=== PATIENT | female | born 1990 | race Caucasian/White ===

== ENCOUNTER 2022-07-15 10:18 | Emergency (ER) | payer OTHER, SELFPAY ==
[2022-07-15 10:21] VITALS: BP 127/84; PULSE 88; RESP 16; TEMP 36.9; O2SAT 100; BMI 25.0
--- NOTE | 2022-07-15 10:38 | ED.ABDPAIN ---
HPI - Abdominal Pain General Time Seen by Provider: 10:38 Date Seen: 07/15/22 Chief Complaint: Abdominal Pain Stated Complaint: Abdominal pain, urinary symptoms Time Seen by Provider: 07/15/22 10:34 Source: patient, RN notes reviewed and old records reviewed Mode of arrival: ambulatory Limitations: no limitations History of Present Illness HPI narrative: Melony is a very pleasant 31-year-old female who is really quite healthy who comes to the emergency room with complaints of vaginal discharge and abdominal pain. Patient states that 4 days ago she began to notice a malodorous thick yellow almost greenish discharge that reminded her of bacterial vaginosis which she has had in the past. She notes that the odor has resolved but she still has some discharge. Is not concerned about any ST eyes and is at a healthy marriage. She denies a past history of chlamydia or gonorrhea. She notes that 2 days ago she began experiencing left-sided abdominal pain. This is now radiating to her left flank and even up her back toward her shoulder. She tried to get into the [facility] but she would they were unable to schedule her until next week. Patient has noted that she feels bloated and crampy and when she urinates she does not feel like she urinates as much as she should. She has not had a fever but does state she has felt hot. 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 She just had on inspection. She has not had ulcers in the past and is on Protonix. She denies alcohol use in fact she has been sober for many years. She had her son in February of this year. Shoulder dystocia complication but no other issues. She is not currently on control and had a normal period 2 weeks ago. She states she has only had 3. Since the of her son. Denies nausea or vomiting. No change in her stools. No blood in stool. Feels very fatigued. Has not taken anything for discomfort. MD elicited complaint: abdominal pain and flank pain Pertinent past history: none Pain Consistency: constant Location: epigastric and LUQ Severity: moderate Quality: cramping, fullness and sharp Radiation: L flank Migration to: other (Left upper back) Exacerbating factors: rest Relieving factors: bowel movement (Slight improvement) Related Data Previous Rx's Medication Instructions Recorded metronidazole 0.75 % (37.5 mg/5 5 g vaginal DAILY 5 days #25 grams 07/15/22 gram) vaginal gel Allergies Allergy/AdvReac Type Severity Reaction Status Date / Time buspirone Allergy Mild Verified 07/15/22 12:22 Review of Systems Status of ROS Reports: 10 or more systems reviewed and unremarkable except as noted in History and below Const Reports: fatigue; Denies: fever or chills Eyes Denies: change in vision ENMT Denies: throat pain, throat swelling or difficulty swallowing Cardio Denies: chest pain, palpitations, edema or shortness of breath with exertion Resp Denies: shortness of breath or cough GI Reports: abdominal pain; Denies: nausea, vomiting, diarrhea or difficulty swallowing Reports: urinary frequency and decreased urine ouput; Denies: painful urination Musculo Reports: back pain Integ/Breast Denies: rash Neuro Denies: headache, numbness in extremities or weakness in extremities Psych Reports: anxiety and other (Significant workplace stressors) Endo Reports: fatigue; Denies: excessive urination or excessive thirst Allergy/Immuno Denies: throat swelling PFSH PFSH Social History Smoking Status: Never smoker Do you use any of these nicotine containing products: None Second hand tobacco smoke exposure: No How often do you have a drink containing alcohol: never How often do you have six or more drinks on one occasion: Never AUDIT-C Alcohol total score: 0 Non-prescribed substance use: denies use service: No Exam Narrative: Exam Narrative: Past medical history: Anxiety depression Alcohol abuse sober for many years Family history: Mother with pancreatic cancer status post [facility] Father with alcohol addiction Two brothers are healthy 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 tobacco use No alcohol use Const: Vital Signs, click to edit/add: Vital Signs - 24 hr 07/15/22 10:21 07/15/22 13:06 07/15/22 14:32 Temperature 98.5 F Pulse Rate [Right Pulse Oximeter] 88 68 83 Respiratory Rate 16 16 16 Blood Pressure [Ri ght Upper Arm] 127/84 124/75 116/72 Pulse Oximetry 100 99 100 Oxygen Delivery Me thod Room Air Room Air Room Air Documenting provider has reviewed patient's vital signs: yes Common normals: no apparent distress, average body habitus, oriented x3, no limitations, healthy appearing, alert and well nourished General appearance: cooperative, comfortable and well kempt HENMT: Common normals: normocephalic Head and scalp: normocephalic Eye: Common normals: PERRL General eye: normal appearance of both eyes Pupil: PERRL Neck & C-Spine: Common normals: full ROM Chest: Common normals: inspection of chest normal Resp: Common normals: normal respiratory effort and clear to auscultation bilaterally Effort & inspection: able to speak in complete sentences and symmetric chest movement Auscultation: clear to auscultation bilaterally Cardio: Common normals: regular rate and regular rhythm Rate: regular rate Rhythm: regular rhythm GI: Common normals: soft to palpation and no masses Auscultation: normoactive bowel sounds Palpation: soft and tender Details: epigastric and LUQ : Common normals: no CVA tenderness Bladder/kidney exam: no CVA tenderness External Female Exam: normal appearance of the urethra Speculum exam - cervix: cervical os closed and other (White vaginal discharge.); no cervical bleeding and no cervical tenderness Bimanual exam- vagina & uterus: normal vaginal palpation; no cervical motion tenderness and no cervical tenderness Bimanual exam- adnexa, other: other (Left adnexal tenderness.) Back & Pelvis: Common normals: no CVA tenderness and thoracic and lumbar spine normal to inspection Extremity: Common normals: normal to inspection and full ROM Other: Full flexion of the knee. No obvious effusion. Not warm to the touch. No obvious effusion. Neuro: Common normals: oriented x3 Sensorium/orientation: alert Psych: Common normals: mental status grossly normal and thought process normal Appearance: well kempt Thought process: normal thought process Skin: Common normals: no rashes or lesions noted General skin exam: no rashes or lesions noted Course Course Hospital Course: At this time patient has vaginal discharge but abdominal pain is actually more left upper quadrant and epigastric area. We will place IV and patient will be given Toradol and fluids. Plan on abdominal CT once we have a negative test. Also will check CBC, comprehensive panel, CRP, wet prep, GC chlamydia, urinalysis and HCG. Reevaluation(s) Reevaluation #1: Vaginal exam accomplished. Patient noted to have persistent pain after Toradol. I did offer morphine and Zofran but patient would like to hold off for now. Currently awaiting results of abdominal CT. If normal would recommend vaginal ultrasound. Reevaluation #2: Patient informed that CT of the abdomen was read within normal limits. At this time have ordered ultrasound of the pelvis. Vital Signs Vital signs: Initial Vital Signs Temperature 98.5 F 07/15/22 10:21 Temperature Source Temporal Artery Scan 07/15/22 10:21 Pulse Rate 88 07/15/22 10:21 Pulse Rhythm 07/15/22 10:21 Respiratory Rate 16 07/15/22 10:21 Blood Pressure 127/84 07/15/22 10:21 Blood Pressure Mean 98 07/15/22 10:21 Blood Pressure Position Sitting 07/15/22 10:21 Pulse Oximetry 100 07/15/22 10:21 Oxygen Delivery Method 07/15/22 10:21 Vital Signs Temperature 98.5 F 07/15/22 10:21 Pulse Rate 88 07/15/22 10:21 Respiratory Rate 16 07/15/22 10:21 Blood Pressure 127/84 07/15/22 10:21 Pulse Oximetry 100 07/15/22 10:21 Oxygen Delivery Method 07/15/22 10:21 Temperature 98.5 F 07/15/22 10:21 Pulse Rate 83 07/15/22 14:32 Respiratory Rate 16 07/15/22 14:32 Blood Pressure 116/72 07/15/22 14:32 Pulse Oximetry 100 07/15/22 14:32 Oxygen Delivery Method 07/15/22 14:32 MDM - Abdominal Pain MDM Narrative Medical decision making narrative: 1. Vaginal discharge -patient notes the vaginal discharge is unusual for her. She thinks this feels like bacterial vaginosis. Wet prep was negative at this time. As a trial will use Flagyl inserts 1 insert x5 nights. Follow-up with OBGYN next TuesdayJuly 23 at 1100 hours. GC/chlamydia tests are pending at this time. Very low suspicion of them being positive. White count and LFTs as well as urine all within normal limits. 2. Abdominal pain -abdominal CT reassuring without any evidence of significant pathology. At this time recommend ibuprofen or Tylenol for discomfort as well as trial of MiraLax 1/2 cap b.i.d. until stools are soft. Return to the emergency room for worsening or the onset of new symptoms. 3. Knee pain-patient is noted to have normal appearance of knee without effusion or erythema it is not warm to the touch. Recommend knee sleeve with support for the patella. I wonder if this is patellofemoral syndrome. Will need to see PT if pain does not improve. No evidence of something like Yeni syndrome with joint not red or swollen. 3. Disposition-patient is discharged at this time. Return as needed. Medical Records Attestation: I reviewed the patient's medical records. Lab Data Attestation: I reviewed the patient's lab results. Labs: Lab Results 07/15/22 07/15/22 07/15/22 Range/Units 10:52 11:00 11:10 WBC 4.57 (4.50-11.00) K/uL RBC 4.31 (4.00-5.20) m/uL Hgb 12.3 (12.0-16.0) gm/dL Hct 38.2 (33.0-51.0) % MCV 89 (80-100) fL MCH 29 (26-34) pg MCHC 32 (32-36) gm/dL RDW Coeff of Angela 13.1 (11.5-15.5) % Plt Count 224 (140-440) K/uL Neut % (Auto) 43.1 (42.0-72.0) % Lymph % (Auto) 47.9 H (20-44) % [place] % (Auto) 6.6 (0.0-11.0) % Eos % (Auto) 1.5 (0.0-7.0) % Baso % (Auto) 0.9 (0.0-3.0) % Neut # (Auto) 1.97 (1.7-7.0) K/uL Lymph # (Auto) 2.20 (0.90-2.90) K/uL [place] # (Auto) 0.30 (0.00-0.90) K/UL Eos # (Auto) 0.07 (0.00-0.50) K/uL Baso # (Auto) 0.04 (0.00-0.30) K/uL Abs Immat Gran (auto) 0.00 (0.00-0.30) K/uL Sodium (135-149) mmol/L Potassium (3.6-5.1) mmol/L Chloride (96-114) mmol/L Carbon Dioxide (20-32) mmol/L BUN (5-24) mg/dL Creatinine (0.5-1.5) mg/dL Estimated Creat Clear Estimated GFR ml/min Glucose (60-115) mg/dL Calcium (8.4-10.6) mg/dL Total Bilirubin (0.1-1.5) mg/dL AST (12-35) U/L ALT (4-35) U/L Alkaline Phosphatase (40-150) U/L C-Reactive Protein (0.5-1.0) mg/dL Total Protein (6.0-8.3) g/dL Albumin (3.3-5.0) g/dL Urine Color Yellow (Yellow) Urine Appearance Clear (Clear) Urine pH 7.0 (5.0-8.5) Ur Specific [place] 1.010 (1.000-1.030) Urine Protein Negative (Negative) Urine Glucose (UA) Negative (Negative) Urine Ketones Negative (Negative) Urine Blood Negative (Negative) Urine Nitrite Negative (Negative) Urine Bilirubin Negative (Negative) Urine Urobilinogen 0.2 (0.2-1.0) Ur Leukocyte Esterase Negative (Negative) Urine RBC 0-2 (0-2) Urine WBC 0-2 (0-5) Ur Squamous Epith Cells Few (None-Few) Urine Bacteria None (None) Urine HCG, Qual Negative (Negative) Vaginal Trichomonas (None Seen) Vaginal Yeast (None Seen) Vaginal Clue Cells (None Seen) C.trachomatis Ampl DNA NOT DETECTED (No Detected) N.gonorrhoeae Ampl DNA NOT DETECTED (No Detected) 07/15/22 07/15/22 Range/Units 11:10 12:49 WBC (4.50-11.00) K/uL RBC (4.00-5.20) m/uL Hgb (12.0-16.0) gm/dL Hct (33.0-51.0) % MCV (80-100) fL MCH (26-34) pg MCHC (32-36) gm/dL RDW Coeff of Angela (11.5-15.5) % Plt Count (140-440) K/uL Neut % (Auto) (42.0-72.0) % Lymph % (Auto) (20-44) % [place] % (Auto) (0.0-11.0) % Eos % (Auto) (0.0-7.0) % Baso % (Auto) (0.0-3.0) % Neut # (Auto) (1.7-7.0) K/uL Lymph # (Auto) (0.90-2.90) K/uL [place] # (Auto) (0.00-0.90) K/UL Eos # (Auto) (0.00-0.50) K/uL Baso # (Auto) (0.00-0.30) K/uL Abs Immat Gran (auto) (0.00-0.30) K/uL Sodium 138 (135-149) mmol/L Potassium 4.2 (3.6-5.1) mmol/L Chloride 103 (96-114) mmol/L Carbon Dioxide 27 (20-32) mmol/L BUN 13 (5-24) mg/dL Creatinine 0.8 (0.5-1.5) mg/dL Estimated Creat Clear 93.37 Estimated GFR 102 ml/min Glucose 88 (60-115) mg/dL Calcium 9.3 (8.4-10.6) mg/dL Total Bilirubin 0.2 (0.1-1.5) mg/dL AST 24 (12-35) U/L ALT 15 (4-35) U/L Alkaline Phosphatase 53 (40-150) U/L C-Reactive Protein < 0.5 L (0.5-1.0) mg/dL Total Protein 7.8 (6.0-8.3) g/dL Albumin 4.6 (3.3-5.0) g/dL Urine Color (Yellow) Urine Appearance (Clear) Urine pH (5.0-8.5) Ur Specific [place] (1.000-1.030) Urine Protein (Negative) Urine Glucose (UA) (Negative) Urine Ketones (Negative) Urine Blood (Negative) Urine Nitrite (Negative) Urine Bilirubin (Negative) Urine Urobilinogen (0.2-1.0) Ur Leukocyte Esterase (Negative) Urine RBC (0-2) Urine WBC (0-5) Ur Squamous Epith Cells (None-Few) Urine Bacteria (None) Urine HCG, Qual (Negative) Vaginal Trichomonas No Trichomonas Seen (None Seen) Vaginal Yeast No Yeast Seen (None Seen) Vaginal Clue Cells No Clue Cells Seen (None Seen) C.trachomatis Ampl DNA (No Detected) N.gonorrhoeae Ampl DNA (No Detected) Imaging Data CT scan - abdomen: Attestation: I have reviewed the pertinent imaging results. Radiologist's impression: No obvious cause of discomfort. No acute findings Pelvis ultrasound: Attestation: I have reviewed the pertinent imaging results. Radiologist's impression: Unremarkable and no acute findings Discharge Plan Discharge Clinical Impression: Vaginal discharge, Abdominal pain Patient Disposition: Home, Self-Care Condition: Unchanged Additional Instructions: Recommend starting Flagyl vaginal inserts for symptoms related to bacterial vaginosis in her even though you tested negative today. Ibuprofen or Tylenol as needed for pain. Recommend using MiraLax 1/2 does call in the morning and 1/2 dose at night. With follow-up with OBGYN on: TuesdayJuly 23 at 1100 hours at the [facility] with Susan Kellogg nurse practitioner. Seek medical attention for worsening symptoms. Prescriptions: New metronidazole 0.75 % (37.5mg/5 gram) gel 5 g vaginal DAILY 5 Days Qty: 25 0RF Follow Up/Referrals: Provider,Not a Local [Primary Care Provider] - Stand Alone Forms: [facility] Info Instructions
[2022-07-15 11:20] LABS: Basophils Absolute Auto 0.04 K/uL (0.00-0.30); Basophils Percent Auto 0.9 % (0.0-3.0); Eosinophils Absolute Auto 0.07 K/uL (0.00-0.50); Eosinophils Percent Auto 1.5 % (0.0-7.0); Hematocrit 38.2 % (33.0-51.0); Hemoglobin* 12.3 gm/dL (12.0-16.0); Lymphocytes Percent Auto 47.9 % (20-44); Mean Corpuscular HGB Conc 32 gm/dL (32-36); Mean Corpuscular Hemoglobin 29 pg (26-34); Mean Corpuscular Volume 89 fL (80-100); Monocytes Percent Auto 6.6 % (0.0-11.0); Neutrophils Absolute Auto 1.97 K/uL (1.7-7.0); Neutrophils Percent Auto 43.1 % (42.0-72.0); Platelet Count* 224 K/uL (140-440); RDW Coefficient of Variation % 13.1 % (11.5-15.5); Red Blood Count 4.31 m/uL (4.00-5.20); White Blood Count* 4.57 K/uL (4.50-11.00)
[2022-07-15 11:24] LABS: Slide Review Reflex No
[2022-07-15 11:27] LABS: Ur HCG Qualitative* Negative (Negative)
[2022-07-15 11:29] LABS: Appearance Urine Clear (Clear); Bilirubin Urine Negative (Negative); Blood Urine Negative (Negative); Color Urine Yellow (Yellow); Glucose Urine Negative (Negative); Ketones Urine Negative (Negative); Leukocyte Esterase Urine Negative (Negative); Nitrite Urine Negative (Negative); Protein Urine Negative (Negative); Urobilinogen Urine 0.2 (0.2-1.0)
[2022-07-15 11:36] LABS: Albumin* 4.6 g/dL (3.3-5.0); Chloride* 103 mmol/L (96-114); Sodium* 138 mmol/L (135-149)
[2022-07-15 11:37] LABS: Potassium* 4.2 mmol/L (3.6-5.1)
[2022-07-15 11:39] LABS: Bilirubin Total* 0.2 mg/dL (0.1-1.5); Carbon Dioxide* 27 mmol/L (20-32); Creatinine* 0.8 mg/dL (0.5-1.5); Est. Creatinine Clearance* 93.37; Estimated Glomerular Filt Rate 102 ml/min
[2022-07-15 11:40] LABS: Alanine Aminotransferase* 15 U/L (4-35); Alkaline Phosphatase* 53 U/L (40-150); Aspartate Amino Transferase* 24 U/L (12-35); Blood Urea Nitrogen* 13 mg/dL (5-24); Glucose* 88 mg/dL (60-115); Total Protein* 7.8 g/dL (6.0-8.3)
[2022-07-15 11:41] LABS: Calcium* 9.3 mg/dL (8.4-10.6)
--- NOTE | 2022-07-15 11:50 | CRLHL7_ITS ---
For Patients: As a result of the Century Cures Act, medical imaging exams and procedure reports are released immediately into your electronic medical record. You may view this report before your referring provider. If you have questions, please contact your health care provider. INDICATION: Left upper quadrant abdominal pain COMPARISON: None TECHNIQUE: CT examination of the abdomen and pelvis was performed following the uneventful intravenous administration of 74 cc of Isovue 370. Thin section axial images were obtained from the lung bases through the pubic symphysis. Oral contrast was not administered. TECHNICAL NOTE: Moderate limitations due to motion artifact especially in the upper half of the abdomen. Please note that all CT scans at this facility use dose modulation, iterative reconstruction, and/or weight-based dosing when appropriate to reduce radiation dose to as low as reasonably achievable. FINDINGS: LUNG BASES: The lung bases as visualized appear normal.The heart size is normal at the lung bases. LIVER/BILIARY SYSTEM:The liver is normal in size and configuration. There is no focal mass and there is no intra- or extra hepatic biliary ductal dilatation.Hepatic steatosis. The gallbladder appears normal ADRENALS: Normal KIDNEYS, URETERS and BLADDER:The kidneys appear normal. No visible mass, calculus or hydronephrosis. The ureters and bladder as visualized appear normal. SPLEEN:Normal appearance. PANCREAS: Appears normal. RETROPERITONEUM and MESENTERY: There is no mass, adenopathy or aortic aneurysm. GASTROINTESTINAL SYSTEM: There is no evidence of diverticulitis, colitis, mechanical obstruction, or appendicitis. The small bowel as visualized appears normal. PELVIS: No mass, adenopathy or free fluid. OSSEOUS STRUCTURES and ABDOMINAL WALL: There is an age-appropriate appearance of the osseous structures.No significant abdominal wall defect. OTHER: No free fluid or free air. IMPRESSION: Somewhat limited by motion. However, there is no visible cause for upper abdominal pain. Hepatic steatosis. Please note that all CT scans at this facility use dose modulation, iterative reconstruction, and/or weight-based dosing when appropriate to reduce radiation dose to as low as reasonably achievable. Dictated by Chapincito De MD @ 07/15/2022 12:49:15 PM (Electronically Signed)
[2022-07-15 11:55] LABS: C Reactive Protein* < 0.5 mg/dL (0.5-1.0)
[2022-07-15 11:55] LABS: RBC Urine 0-2 (0-2); WBC Urine 0-2 (0-5)
[2022-07-15 11:56] LABS: Squamous Epithelial Cell Urine Few (None-Few)
[2022-07-15] MEDS: KETOROLAC 15 MG/ML inj IVP (12:34)
[2022-07-15] MEDS: 0.9 % SODIUM CHLORIDE 1000 ml 1,000 ML IV (12:34)
[2022-07-15 13:06] VITALS: BP 124/75; PULSE 68; RESP 16; O2SAT 99
--- NOTE | 2022-07-15 13:20 | CRLHL7_ITS ---
For Patients: As a result of the Century Cures Act, medical imaging exams and procedure reports are released immediately into your electronic medical record. You may view this report before your referring provider. If you have questions, please contact your health care provider. Indication: Left-sided pain Technique: Sonography of the pelvis was performed transabdominally and transvaginally Comparison: There are no prior ultrasounds available for comparison. Findings: The uterus measures 8.8 x 4.5 x 5.4 centimeters which is normal. Myometrial echotexture is unremarkable. The endometrium measures 5 millimeters which is normal. The right ovary measures 3.5 x 2.2 x 2.6 centimeters. Doppler flow was identified and appears normal. The left ovary measures 3.2 x 2.0 x 2.5 centimeters. Doppler flow was identified in appear normal. There is no free fluid in the cul-de-sac. Impression: Unremarkable examination Dictated by Chapincito De MD @ 07/15/2022 2:29:14 PM (Electronically Signed)
[2022-07-15 13:31] LABS: Yeast No Yeast Seen (None Seen)
[2022-07-15 13:32] LABS: Clue Cells No Clue Cells Seen (None Seen); Trichomonas No Trichomonas Seen (None Seen)
[2022-07-15] MEDS: ONDANSETRON 2 MG/ML inj 4 MG IVP (14:18)
[2022-07-15] MEDS: MORPHINE 4 MG/ML INJ IVP (14:18)
[2022-07-15 14:32] VITALS: BP 116/72; PULSE 83; RESP 16; O2SAT 100
[2022-07-15 14:51] LABS: Chlamydia DNA Amplified* NOT DETECTED (No Detected); GC DNA Amplified* NOT DETECTED (No Detected)
== END 2022-07-15 15:01 | disposition home or self-care (01) ==
PROVIDERS: Emergency Provider Family Medicine
DX: N89.8 Other specified noninflammatory disorders of vagina (principal); R10.9 Unspecified abdominal pain
CPT/HCPCS: 36415; 74177; 76830; 80053; 81001; 81025; 85025; 86140; 87210; 87491; 87591; 93976; 96374; 96375; 99284; 99285; J1885; J2270; J2405; J7030; Q9967

== ENCOUNTER 2024-06-17 17:02 | Emergency (ER) | payer OTHER, SELFPAY ==
[2024-06-17 17:14] VITALS: BP 120/72; PULSE 69; RESP 18; TEMP 36.7; O2SAT 99; BMI 28.3
[2024-06-17 18:08] LABS: Appearance Urine Clear (Clear); Bilirubin Urine Negative (Negative); Blood Urine Negative (Negative); Color Urine Yellow (Yellow); Glucose Urine Negative (Negative); Ketones Urine Negative (Negative); Leukocyte Esterase Urine Negative (Negative); Nitrite Urine Negative (Negative); Protein Urine Negative (Negative); Specific Gravity Urine 1.015 (1.000-1.030); Urobilinogen Urine 0.2 (0.2-1.0); pH Urine 6.5 (5.0-8.5)
--- NOTE | 2024-06-17 18:36 | ED_ITS ---
HPI - General Date Seen: 06/17/24 Chief complaint: OB/Uterine Contractions Stated complaint: cramping, 18 wks Time Seen by Provider: 06/17/24 17:46 Source: patient Mode of arrival: ambulatory Limitations: no limitations History of Present Illness HPI Narrative: Patient is a 33-year-old female who presents here at 18 weeks gestation, with a Trejo , early ultrasound for dating. She had left lower quadrant discomfort about an hour ago, that lasted for probably about 30 minutes on a cramp situation she did not think it was contractions, was left lower quadrant cramping. Did not go anywhere else to her back. She has not noted any bleeding or discharge, the has been uneventful so far she has had a little problem with frequency of urination but states in her other she had the similar issue. No history of UTIs. She is a with 2 spontaneous vaginal deliveries, she is followed by [facility] in [place]. She describes the pain really is gone away at this point. She was out the sun all day. And playing in the pool at home with her other children. She had normal bowel movements today. Complaint: abdominal pain Onset (ago): hour(s) Pain Consistency: constant Location: abdomen Severity: moderate Quality: Cramping Relieving factors: none Exacerbating factors: none Associated symptoms: denies other symptoms Vaginal discharge: none Vaginal bleeding: none Patient : Yes Number of Weeks : 18 OB History - Current : no complications OB History - Previous Pregnancies: no complications care: good care Related Data : 3 Para: 2 Home Medications ?Medication ?Instructions ?Recorded ?Confirmed ferrous gluconate 324 mg (38 mg 324 mg PO Q1D 06/17/24 06/17/24 iron) tablet sertraline 100 mg tablet 200 mg PO DAILY 06/17/24 06/17/24 Previous Rx's ?Medication ?Instructions ?Recorded metronidazole 0.75 % (37.5 mg/5 5 g vaginal DAILY 5 days #25 grams 07/15/22 gram) vaginal gel Allergies Allergy/AdvReac Type Severity Reaction Status Date / Time buspirone Allergy Mild Verified 07/15/22 12:22 Review of Systems Status of ROS: Reports: 10 or more systems reviewed and unremarkable except as noted in History and below PFSH PFSH Social History Smoking Status: Never smoker Do you use any of these nicotine containing products: None Second hand tobacco smoke exposure: No How often do you have a drink containing alcohol: never How often do you have six or more drinks on one occasion: Never AUDIT-C Alcohol total score: 0 Non-prescribed substance use: denies use service: No Exam Narrative: Exam Narrative: She is seen in room 7 she appears to be in no apparent distress, speaking to me normally pupils equal round reactive to light there is no scleral icterus redness TMs are normal oropharynx normal abdomen is soft there is no guarding at all no organomegaly bowel sounds are normal the uterus is at her umbilicus. With no tenderness. Back shows no tenderness no, no CVA tenderness, no rashes Ultrasound is use, this shows a Trejo with baby move around with a normal heart seen on the ultrasound at 150 beats per minute. Uterus appears anterior and low lying. Const: Vital Signs, click to edit/add: Vital Signs - 24 hr 06/17/24 17:14 Temperature 98.1 F Pulse Rate [Left P ulse Oximeter] 69 Respiratory Rate 18 Blood Pressure [Ri ght Upper Arm] 120/72 Pulse Oximetry 99 Oxygen Delivery Me thod Room Air Documenting provider has reviewed patient's vital signs: yes Course Reevaluation(s) Time of Reevaluation #1: 19:12 Reevaluation #1: Patient continues to be pain-free, she has received her fluids. She is almost done, heart is auscultated by the nurses at 147. at this point we can discharge her home I went over with he ther signs and symptom of worsening, when to re present. She was comfortable with this., Vital Signs Vital signs: Initial Vital Signs Temperature 98.1 F 06/17/24 17:14 Temperature Source Oral 06/17/24 17:14 Pulse Rate 69 06/17/24 17:14 Pulse Rhythm Regular 06/17/24 17:14 Pulse Strength 3+ Normal 06/17/24 17:14 Respiratory Rate 18 06/17/24 17:14 Blood Pressure 120/72 06/17/24 17:14 Blood Pressure Mean 88 06/17/24 17:14 Blood Pressure Position Sitting 06/17/24 17:14 Pulse Oximetry 99 06/17/24 17:14 Oxygen Delivery Method Room Air 06/17/24 17:14 Vital Signs Temperature 98.1 F 06/17/24 17:14 Pulse Rate 69 06/17/24 17:14 Respiratory Rate 18 06/17/24 17:14 Blood Pressure 120/72 06/17/24 17:14 Pulse Oximetry 99 06/17/24 17:14 Oxygen Delivery Method Room Air 06/17/24 17:14 Temperature 98.1 F 06/17/24 17:14 Pulse Rate 69 06/17/24 17:14 Respiratory Rate 18 06/17/24 17:14 Blood Pressure 120/72 06/17/24 17:14 Pulse Oximetry 99 06/17/24 17:14 Oxygen Delivery Method Room Air 06/17/24 17:14 Medications Administered Medications: Discontinued Medications Generic Name Dose Route Start Last Admin Trade Name Freq PRN Reason Stop Dose Admin Sodium Chloride 1,000 mls @ 1,000 mls/hr 06/17/24 18:00 06/17/24 18:43 0.9 % Sodium Chloride 1000 Ml IV 06/17/24 18:59 1,000 mls/hr .Q1H TIMOTEO Administration MDM - OB/Uterine Contractions MDM Narrative Medical decision making narrative: I discussed with her options here. Including for the diagnosis including irritability, of the uterus threatened , UTI, as pyelonephritis, diverticulitis, abruptio, dehydration, constipation, Lab Data Labs: Lab Results 06/17/24 Range/Units 18:00 Urine Color Yellow (Yellow) Urine Appearance Clear (Clear) Urine pH 6.5 (5.0-8.5) Ur Specific Pear[place]om 1.015 (1.000-1.030) Urine Protein Negative (Negative) Urine Glucose (UA) Negative (Negative) Urine Ketones Negative (Negative) Urine Blood Negative (Negative) Urine Nitrite Negative (Negative) Urine Bilirubin Negative (Negative) Urine Urobilinogen 0.2 (0.2-1.0) Ur Leukocyte Esterase Negative (Negative) Discharge Plan Discharge Clinical Impression: Left sided abdominal pain of unknown cause, Patient Disposition: Home, Self-Care Condition: Improved Instructions: (ED), Abdominal Pain (ED), at 19 to 22 Weeks (ED) Additional Instructions: I am happy that the pain went away I suspect this was either gas or maybe a little bit of dehydration, no evidence of UTI on examination and her baby looks happy on the ultrasound that we did. The pain recurs, you a vaginal bleeding or other issues then I would ask you to follow-up with here OB or back here in the emergency room. No strenuous activity for the next 24-48 hours and I would avoid intercourse also during this time. Activity Level: Light activity Prescriptions: No Action metronidazole 0.75 % (37.5mg/5 gram) gel 5 g vaginal DAILY 5 Days Qty: 25 0RF sertraline 100 mg tablet 200 mg PO DAILY ferrous gluconate 324 mg (38 mg iron) tablet 324 mg PO Q1D Follow Up/Referrals: Provider,Not a Local [Primary Care Provider] - Stand Alone Forms: MyHealth Info Instructions Procedures Perimortem Number of Weeks : 18
[2024-06-17] MEDS: 0.9 % SODIUM CHLORIDE 1000 ml 1,000 ML IV (18:43)
== END 2024-06-17 19:38 | disposition home or self-care (01) ==
PROVIDERS: Emergency Provider Family Medicine
DX: R10.32 Left lower quadrant pain (principal); Z33.1 Pregnant state, incidental
CPT/HCPCS: 81003; 99282; 99283; 99284; J7030

== ENCOUNTER 2025-11-18 11:03 | Emergency (ER) | payer OTHER, SELFPAY ==
[2025-11-18 11:06] VITALS: BP 126/77; PULSE 92; RESP 16; TEMP 36.9; O2SAT 99; BMI 27.2
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
--- OUTSIDE RECORDS SUMMARY | 2025-11-18 11:06 | XMS_ITS | Clinical Summary ---
Author Organization [facility] Address [address] [place] [address]. 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 Draw one red top and two purple top tubes for all Type&Screen/RBC product orders. HbcybyrpmPofwzyxqkmfnVyu24/04/2017 Medications MedicationSigDispense QuantityRefillsLast FilledStart DateEnd DateStatus busPIRone (BUSPAR) 10 MG tablet Take 1 tablet (10 mg) by mouth 3 times daily 90 tablet 09/08/2016Active ISOtretinoin (ACCUTANE) 10 MG capsule Take 30 mg by mouth12/30/2016Active cyclobenzaprine (FLEXERIL) 10 MG tablet Take 5-10 mg by mouth Reported on Active venlafaxine (EFFEXOR) 75 MG tablet Take 75 mg by mouth08/24/2017Active fluticasone (FLONASE) 50 MCG/ACT nasal spray [place] 1 spray into both nostrils daily 11.1 mL 2Active Active Problems No known active problems Family History RelationStatusCommentsFatherAliveMotherAlive Social History Tobacco UseTypesPacks/DayYears UsedDateSmoking Tobacco: FormerSmokeless Tobacco: Never Tobacco Cessation:Ready to Q uit: No; Counseling Given: No Alcohol UseStandard Drinks/WeekCommentsNo0 (1 standard drink = 0.6 oz pure alcohol)PHQ-2AnswerDate RecordedPHQ-2 Ekoki548Adolescent EducationAnswer Date RecordedGetting School Help NeededNot on file3CommentsNo Sex and Gender InformationValueDate RecordedSex Assigned at BirthNot on file Legal InsJcbvrm16/21/2014 3:27 PM CDTGender IdentityNot on fileSexual OrientationNot on file Last Filed Vital Signs Vital SignReadingTime TakenCommentsBlood Camtzddf855/8605/30/2022 11:03 PM CDT Bsdhd656605/30/2022 11:00 PM GTHHzcnxvmilix32.2 ??C (97.2 ??F)05/30/2022 11:00 PM CDTRespiratory Mazx136605/30/2022 11:00 PM CDTOxygen Tuqepqpmxy802%05/30/2022 11:00 PM CDTInhaled Oxygen Concentration--Hxrdcs36 kg (150 lb)05/30/2022 11:00 PM KOUVpznwy795.1 cm (5' 5)05/30/2022 11:00 PM CDTBody Mass Index24.96 05/30/2022 11:00 PM CDT Plan of Treatment Not on file Insurance * Guarantor: Melony Ernst TypeRelation to PatientDate of BirthPhone Billing AddressWorker's RxptpvtoilsnCdbi07/07/1993 none (Work) [address] [place] [id number] Care Teams Team MemberRelationshipSpecialtyStart DateEnd Date Destiny Cho NP PCP - Jfcggbj34/7/17
--- OUTSIDE RECORDS SUMMARY | 2025-11-18 11:07 | XMS_ITS | Clinical Summary ---
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 Result * SEDIMENTATION RATE (10/15/2025 10:27 AM SENIOR ANALYTICAL CHEMIST)ComponentValueRef RangeTest Method Analysis TimePerformed AtPathologist SignatureSED RATE BY MODIFIED WESTERGREN2 < OR = 20 mm/h112/16/2024 4:35 AM CSTQUEST DIAGNOSTICSSpecimen (Source) Anatomical Location / LateralityCollection Method / VolumeCollection Time Received TimeBloodBLOOD SPECIMEN / UnknownQuest Collect / Levutdz8710/15/2025 10:27 AM CST10/15/2025 10:27 AM SENIOR ANALYTICAL CHEMIST Narrative Authorizing ProviderResult TypeResult StatusMacTrinity Health [facility] PAHEMATOLOGY Final ResultPerforming OrganizationAddressCity/State/ZIP CodePhone Number [facility] [address] [place] [address], [place] [phone] * CBC WITH AUTO DIFFERENTIAL (10/15/2025 10:27 AM SENIOR ANALYTICAL CHEMIST)ComponentValueRef Range Test MethodAnalysis TimePerformed AtPathologist SignatureWHITE BLOOD CELL COUNT5.73.8 - 10.8 Thousand/uL10/15/2025 10:55 AM [facility] LABRED BLOOD CELL COUNT4.643.80 - 5.10 Million/uL10/15/2025 10:55 AM [facility] TOCWBFSSUDAUH10.911.7 - 15.5 g/dL10/15/2025 10:55 AM [facility] LAB NRXOHWWRFH48.635.9 - 46.0 %10/15/2025 10:55 AM [facility] LIJQUE20.581.4 - 101.7 fL10/15/2025 10:55 AM [facility] BLVRFS69.827.0 - 33.0 pg10/15/2025 10:55 AM [facility] PKLFRXM44.831.6 - 35.4 g/dL 10/15/2025 10:55 AM [facility] LABComment: For adults, a slight decrease in the calculated MCHC value (in the range of 30 to 32 g/dL) is most likely not clinically significant; however, it should be interpreted with caution in correlation with other red cell parameters and the patient's clinical condition. RDW13.911.0 - 15.0 %10/15/2025 10:55 AM [facility] LABPLATELET NWWLI502693 - 400 Thousand/uL10/15/2025 10:55 AM [facility] LABMPV9.27.5 - 12.5 fL10/15/2025 10:55 AM [facility] DWBJOYXLRMWXNC12.4%10/15/2025 10:55 AM [facility] YYRHGTEWUZOJVQ92.1%10/15/2025 10:55 AM [facility] LABMONOCYTES6.7%10/15/2025 10:55 AM [facility] LABEOSINOPHILS2.1%10/15/2025 10:55 AM [facility] LABBASOPHILS0.7%10/15/2025 10:55 AM [facility] LABABSOLUTE NEUTROPHILS 14409902 - 7800 cells/uL10/15/2025 10:55 AM [facility] LABABSOLUTE WZWIEAWCHRQ6067938 - 3900 cells/uL10/15/2025 10:55 AM [facility] LABABSOLUTE SPZUSBCTL044952 - 950 cells/uL10/15/2025 10:55 AM [facility] ABSOLUTE PTQKHOOCPDF48272 - 500 cells/uL10/15/2025 10:55 AM [facility] LABABSOLUTE UKPVMOGJJ323 - 200 cells/uL10/15/2025 10:55 AM [facility] LABSpecimen (Source) Anatomical Location / LateralityCollection Method / VolumeCollection Time Received TimeBloodBLOOD SPECIMEN / UnknownQuest Collect / Xjyzwio9210/15/2025 10:27 AM CST10/15/2025 10:27 AM SENIOR ANALYTICAL CHEMIST Narrative Authorizing ProviderResult TypeResult StatusMacTrinity [facility] PAHEMATOLOGY Final ResultPerforming OrganizationAddressCity/State/ZIP CodePhone Number [facility] [place] [address] [place] [address], [place] [phone] [facility] [address] [place] [address], [place] * (ABNORMAL) LIPID PANEL W REFLEX MEASURED LDL (10/15/2025 10:27 AM SENIOR ANALYTICAL CHEMIST) ComponentValueRef RangeTest MethodAnalysis TimePerformed AtPathologist SignatureCHOLESTEROL, XOWAS808<200 mg/dL10/16/2025 5:44 AM CSTQUEST GJLKXFJXXTEIWMXCHKBKWXQF10<150 mg/dL10/16/2025 5:44 AM CSTQUEST DIAGNOSTICSHDL JWLMWUMIZXS49(L)> OR = 50 mg/dL10/16/2025 5:44 AM CSTQUEST DIAGNOSTICSNON HDL EGPRHBZIXPF028<130 mg/dL (calc)10/16/2025 5:44 AM CSTQUEST DIAGNOSTICSComment: For patients with diabetes plus 1 major ASCVD risk factor, treating to a non-HDL-C goal of <100 mg/dL (LDL-C of <70 mg/dL) is considered a therapeutic option. CHOL/HDLC RATIO3.3<5.0 (calc)10/16/2025 5:44 AM CSTQUEST DIAGNOSTICS LDL-RXBWUHSBNCS95ex/dL (calc)10/16/2025 5:44 AM CSTQUEST DIAGNOSTICSComment: Reference range: <100 Desirable range <100 mg/dL for primary prevention; <70 mg/dL for patients with CHD or diabetic patients with > or = 2 CHD risk factors. LDL-C is now calculated using the Donita calculation, which is a validated novel method providing better accuracy than the Friedewald equation in the estimation of LDL-C. Dylan SS et al. SHELIA. 2013;310(19): 5865-6128 (http://education.Voltari.BankFacil/faq/EXW192) Specimen (Source)Anatomical Location / LateralityCollection Method / Volume Collection TimeReceived TimeBloodBLOOD SPECIMEN / UnknownQuest Collect / Unknown 10/15/2025 10:27 AM CST10/15/2025 10:27 AM SENIOR ANALYTICAL CHEMIST Narrative Authorizing ProviderResult TypeResult StatusMacTrinity [facility] PACHEMISTRY Final ResultPerforming OrganizationAddressCity/State/ZIP CodePhone Number [facility] [place] [address], * VITAMIN D 25 (DEFICIENCY) (10/15/2025 10:27 AM SENIOR ANALYTICAL CHEMIST)ComponentValueRef RangeTest MethodAnalysis TimePerformed AtPathologist SignatureVITAMIN D,25-OH,TOTAL,IA34 30 - 100 ng/mL10/16/2025 5:13 AM CSTQUEST DIAGNOSTICSComment: Vitamin D Status ? 25-OH Vitamin D: Deficiency: <20 ng/mL Insufficiency: ? 20 - 29 ng/mL Optimal: > or = 30 ng/mL For 25-OH Vitamin D testing on patients on D2-supplementation and patients for whom quantitation of D2 and D3 fractions is required, the QuestAssureD(TM) 25-OH VIT D, (D2,D3), LC/MS/MS is recommended: order code 29478 (patients >2yrs). See Note 1 Note 1 For additional information, please refer to http://education.Snocap/faq/DDA962 (This link is being provided for informational/ educational purposes only.) Specimen (Source)Anatomical Location / LateralityCollection Method / Volume Collection TimeReceived TimeBloodBLOOD SPECIMEN / UnknownQuest Collect / Unknown 10/15/2025 10:27 AM CST10/15/2025 10:27 AM SENIOR ANALYTICAL CHEMIST Narrative Authorizing ProviderResult TypeResult StatusDeckerville Community Hospital PASEND OUTS Final ResultPerforming [facility] CampusAddSelect Specialty Hospital - [facility]port/State/[facility] CodePhone Number [employer] [address] [address], * ANCA PANEL FOR VASCULITIS (10/15/2025 10:27 AM SENIOR ANALYTICAL CHEMIST)ComponentValueRef RangeTest MethodAnalysis TimePerformed AtPathologist SignatureANCA SCREENNEGATIVE YZYWAFSP44/29/2025 5:41 AM CSTQUEST DIAGNOSTICSComment: ANCA screen uses indirect immunofluorescence to detect antibodies to neutrophil cytoplasmic antigens. A positive screen reflexes to titer and pattern. Patterns include cytoplasmic (c-ANCA) and perinuclear (p-ANCA) both of which are associated with vasculitis, and atypical p-ANCA which is associated with inflammatory bowel disease and other disorders. Specimen (Source)Anatomical Location / LateralityCollection Method / Volume Collection TimeReceived TimeBloodBLOOD SPECIMEN / UnknownQuest Collect / Unknown 10/15/2025 10:27 AM CST10/15/2025 10:27 AM SENIOR ANALYTICAL CHEMIST Narrative Authorizing ProviderResult TypeResult StatusDeckerville Community Hospital PASEND OUTS Final ResultPerforming [facility] CampusAddSelect Specialty Hospital [facility]/ZIP CodePhone Number [facility] [address] [address], * IRON PLUS IRON BINDING CAP (10/15/2025 10:27 AM SENIOR ANALYTICAL CHEMIST)ComponentValueRef Range Test MethodAnalysis TimePerformed AtPathologist SignatureIRON, IZSYV3609 - 190 mcg/dL10/16/2025 5:44 AM CSTQUEST DIAGNOSTICSIRON BINDING AITHUOCF305443 - 450 mcg/dL (calc)10/16/2025 5:44 AM CSTQUEST DIAGNOSTICS% YLQEYIRAXA7457 - 45 % (calc)10/16/2025 5:44 AM CSTQUEST DIAGNOSTICSSpecimen (Source)Anatomical Location / LateralityCollection Method / VolumeCollection TimeReceived Time BloodBLOOD SPECIMEN / UnknownQuest Collect / Wecpfyi6210/15/2025 10:27 AM SENIOR ANALYTICAL CHEMIST 10/15/2025 10:27 AM SENIOR ANALYTICAL CHEMIST Narrative Authorizing ProviderResult TypeResult StatusMacmiriam hospitalaleyda Yañezum PACHEMISTRY Final ResultPerforming OrganizationAddressty/State/ZIP CodePhone Number [facility] [address] [address], [place] [phone] * C-REACTIVE PROTEIN (10/15/2025 10:27 AM SENIOR ANALYTICAL CHEMIST)ComponentValueRef RangeTest Method Analysis TimePerformed AtPathologist SignatureC-REACTIVE PROTEIN (MG/L)<3.0 <8.0 mg/L112/16/2024 2:35 PM CSTQUEST DIAGNOSTICSSpecimen (Source)Anatomical Location / LateralityCollection Method / VolumeCollection TimeReceived Time BloodBLOOD SPECIMEN / UnknownQuest Collect / Murkuon2610/15/2025 10:27 AM SENIOR ANALYTICAL CHEMIST 10/15/2025 10:27 AM SENIOR ANALYTICAL CHEMIST Narrative Authorizing ProviderResult TypeResult StatusMacmiriam hospitalaleyda Yañezum PACHEMISTRY Final ResultPerforming OrganizationAddressty/State/ZIP CodePhone Number [facility] [address] [address], [place] [phone] * (ABNORMAL) FERRITIN (10/15/2025 10:27 AM SENIOR ANALYTICAL CHEMIST)ComponentValueRef RangeTest MethodAnalysis TimePerformed AtPathologist SglxnrqynIESZEODS36(L)16 - 154 ng/mL10/16/2025 5:13 AM CSTQUEST DIAGNOSTICSSpecimen (Source)Anatomical Location / LateralityCollection Method / VolumeCollection TimeReceived Time BloodBLOOD SPECIMEN / UnknownQuest Collect / Ebhokvn3210/15/2025 10:27 AM SENIOR ANALYTICAL CHEMIST 10/15/2025 10:27 AM SENIOR ANALYTICAL CHEMIST Narrative Authorizing ProviderResult TypeResult StatusMackene Rosi Parium PACHEMISTRY Final ResultPerforming OrganizationAddressty/State/ZIP CodePhone Number [email or web address] [address] [place] [address], * COMP METABOLIC PANEL (10/15/2025 10:27 AM SENIOR ANALYTICAL CHEMIST)ComponentValueRef RangeTest MethodAnalysis TimePerformed AtPathologist KbmyjjpvhFRPOHD483476 - 146 mmol/L 10/16/2025 5:44 AM CSTQUEST DIAGNOSTICSPOTASSIUM4.33.5 - 5.3 mmol/L112/16/2024 5:44 AM CSTQUEST ZAFDXFBDAERMVGDXWAJ77387 - 110 mmol/L112/16/2024 5:44 AM SENIOR ANALYTICAL CHEMIST [facility] WFSGXEE6278 - 32 mmol/L112/16/2024 5:44 AM CSTQUEST KWZIZHIDHOSPQHWWFL3127 - 99 mg/dL10/16/2025 5:44 AM [facility] Comment: ? Fasting reference interval CALCIUM9.68.6 - 10.2 mg/dL10/16/2025 5:44 AM CSTQUEST DIAGNOSTICSCREATININE0.78 0.50 - 0.97 mg/dL10/16/2025 5:44 AM CSTQUEST DIAGNOSTICSBUN/CREATININE RATIOSEE NOTE: (calc)10/16/2025 5:44 AM CSTQUEST DIAGNOSTICSComment: ?? Not Reported: BUN and Creatinine are within ?? reference range. ? GMSN089> OR = 60 mL/min/1.85l90110/16/2025 5:44 AM CSTQUEST DIAGNOSTICSALBUMIN4.7 3.6 - 5.1 g/dL10/16/2025 5:44 AM CSTQUEST DIAGNOSTICSPROTEIN, TOTAL7.56.1 - 8.1 g/dL10/16/2025 5:44 AM CSTQUEST DIAGNOSTICSBILIRUBIN, TOTAL0.30.2 - 1.2 mg/dL 10/16/2025 5:44 AM CSTQUEST DIAGNOSTICSALKALINE IGSWMQGTSKI7467 - 125 U/L 10/16/2025 5:44 AM CSTQUEST RIQVAOKKBRWSOD754 - 29 U/L112/16/2024 5:44 AM SENIOR ANALYTICAL CHEMIST [facility] OWOMVOLONRHAHP8998 - 30 U/L112/16/2024 5:44 AM CSTQUEST DIAGNOSTICSUREA NITROGEN (BUN)127 - 25 mg/dL10/16/2025 5:44 AM CSTQUEST DIAGNOSTICSGLOBULIN2.8 1.9 - 3.7 g/dL (calc)10/16/2025 5:44 AM CSTQUEST DIAGNOSTICSALBUMIN/GLOBULIN RATIO1.71.0 - 2.5 (calc)10/16/2025 5:44 AM CSTQUEST DIAGNOSTICSSpecimen (Source) Anatomical Location / LateralityCollection Method / VolumeCollection Time Received TimeBloodBLOOD SPECIMEN / UnknownQuest Collect / Dmctlxc7810/15/2025 10:27 AM CST10/15/2025 10:27 AM SENIOR ANALYTICAL CHEMIST Narrative Authorizing ProviderResult TypeResult StatusMacricardo Everett PACHEMISTRY Final ResultPerforming OrganizationAddressCity/State/ZIP CodePhone Number [facility] [address] [address], * ANTI HCV (05/13/2022 8:07 AM CDT)ComponentValueRef RangeTest MethodAnalysis TimePerformed AtPathologist SignatureHEPATITIS C ANTIBODYNon-Reactive Non-Pifpvaoc85/23/2022 6:07 PM [facility] Comment:Antibodies to HCV not detected; does not exclude the possibility of exposure to HCV.Specimen (Source)Anatomical Location / LateralityCollection Method / VolumeCollection TimeReceived TimeBloodBLOOD SPECIMEN / Unknown Venipuncture / Akqzujz2905/13/2022 8:07 AM CDT05/13/2022 8:07 AM CDT Narrative Authorizing ProviderResult TypeResult StatusJecornelius Wilks Hudson NPSEND OUTSFinal ResultPerforming OrganizationAddressCity/State/ZIP CodePhone Number [facility] [address] [place] [address], * 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 THIN PREP PAP SCREEN IMAGED (08/11/2020 4:12 PM CDT)ComponentValueRef RangeTest MethodAnalysis TimePerformed AtPathologist SignatureCase Report Gynecologic Cytology Report ? Case: [id number] ? Authorizing Provider: ??Vicki Manriquez, DO ?Collected: ? 08/11/2020 1612 ? Ordering Location: ? [facility] ?Received: ?08/11/2020 1648 ? [facility] ? First Screen: ?Dariana Kendall ? Specimen: ?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 ThinPrep Vial Screening, Cervical ? 08/19/2020 3:08 PM [facility] INTERPRETATION/RESULTNEGATIVE FOR INTRAEPITHELIAL LESION OR MALIGNANCY (NIL) (none)08/19/2020 3:08 PM [facility] at 1508 CDTSPECIMEN ADEQUACYSatisfactory for evaluation No endocervical component seen in a zsqrikf0608/19/2020 3:08 PM [facility]-CENTRAL LABORATORYHPV REQUESTHPV if ASCUS08/19/2020 3:08 PM [facility]-CENTRAL LABORATORYDate of ESZcnihwmfj25/29/2020 3:08 PM [facility]ENTRAL LABORATORYLast Pap Date7/08/19/2020 3:08 PM [facility]-C[facility]AL LABORATORYLast Pap ResultNIL 08/19/2020 3:08 PM [facility]Abnormal Pap or Conetoe Bx in last 5 sjahnAa9108/19/2020 3:08 PM [facility] LABORATORYMenstrual HywalbYljugshn28/29/2020 3:08 PM [facility] LABORATORYColp Bx Done NoyuoRy7308/19/2020 3:08 PM [facility] LABORATORYAdditional InformationNone given08/19/2020 3:08 PM [facility]ORATORYComment: Cytology is screened at [facility] - [address], [place] [address] and [facility] - [address] [place] [address], [place] [address] [address] [facility] - [address] [place] [address] Interpreted at [facility] - [address] [place] [address], [place] [address] Automated QpwfkgCrdnzpggfc17/29/2020 3:08 PM [facility] LABORATORYComment:Specimen processed successfully by automated staffing recruiter device, ThinPrep Imaging System, [employer]NoteThe pap test is a screening technique, not a diagnostic procedure. It is used primarily to screen for squamous cancers and precursor lesions. Published studies have shown that it is subject to both false negative and false positive results. The pap test should not be used as the sole means to diagnose or exclude pre-malignant and malignant lesions. 08/19/2020 3:08 PM [facility] LABORATORYSpecimen (Source)Anatomical Location / LateralityCollection Method / VolumeCollection TimeReceived TimeOther (Cervical)Non-Blood / Hbawjxi5908/11/2020 4:12 PM CDT 08/11/2020 4:48 PM CDT Narrative Authorizing ProviderResult TypeResult StatusVicki Manriquez DO PATHOLOGY/CYTOLOGYFinal ResultPerforming OrganizationAddressCity/State/ZIP Code Phone Number [facility] [address] [place] [address], [place] * ANTI HIV 1/2 (07/15/2020 9:48 AM CDT)ComponentValueRef RangeTest Method Analysis TimePerformed AtPathologist SignatureHIV-1/HIV-2 ANTIBODYNon-Reactive Non-Biulbxwj34/25/2020 5:40 PM [facility] Comment:HIV-1 p24 and HIV-1/HIV-2 Ab not detected.Specimen (Source)Anatomical Location / LateralityCollection Method / VolumeCollection TimeReceived Time BloodBLOOD SPECIMEN / UnknownVenipuncture / Fxlznlu7307/15/2020 9:48 AM CDT 07/15/2020 9:48 AM CDT Narrative Authorizing ProviderResult TypeResult StatusCyntmarsha Hawk MDSEND OUTSFinal ResultPerforming OrganizationAddressCity/State/ZIP CodePhone Number [facility] [address] [place] [address], from Last 3 Months or Most Recently Relevant to Health Maintenance Insurance * Guarantor: Gabe Ernst TypeRelation to PatientDate of BirthPhone Billing AddressWorkers MdgwUpin49/07/1991 [phone] [address] Advance Directives * Full Code (Latest Code Status on File) Date ActivatedDate InactivatedComments02/24/2021 10:12 AM02/25/2021 9:07 PMQuestion AnswerCommentsCode Status Discussion:* Not Discussed * Full Code Date ActivatedDate InactivatedComments02/09/2019 10:59 PM02/11/2019 4:35 PM Care Teams Team MemberRelationshipSpecialty[place] [address] [place] [address] PCP - GeneralPhysician Assistant9 Consultants, Dermatology DermatologyDermatology1
--- NOTE | 2025-11-18 11:25 | ED.GENADULT ---
HPI - General Adult General Date Seen: 11/18/25 Chief complaint: Shortness of Breath/Dyspnea Stated complaint: SOB, increased heart rate, headache Time Seen by Provider: 11/18/25 11:08 History of Present Illness HPI narrative: Patient is a 34-year-old woman who had an episode this morning feeling like her heart was racing and pounding. She had just run up the steps after getting her kids off to school and says that she felt like her heart was pounding out of her chest. She laid down, she put a sat monitor on and says that her heart rate was 198. It gradually decreased. She did not have lightheadedness or syncope, did not have chest pain though she says she felt short of breath at the time and was aware of her heart pounding. She still feels kind of off. She has been having problems lately with numbness and tingling in her legs, has seen her primary doctor and has had both venous and arterial ultrasounds which were unremarkable aside from some femoral venous insufficiency. She is somewhat tearful as she tells me about all this, she says that she worries about her house a lot, strokes and heart disease run in her family and she has 3 kids. She does have a history of anxiety is seen by psychiatrist and is taking sertraline. She has been having palpitations for quite some time. She does not smoke or drink. Related Data Home Medications ?Medication ?Instructions ?Recorded ?Confirmed ferrous gluconate 324 mg (38 mg 324 mg PO Q1D 06/17/24 11/18/25 iron) tablet gabapentin 100 mg capsule 100 mg PO DAILY 11/18/25 11/18/25 lisdexamfetamine 50 mg capsule 50 mg PO DAILY 11/18/25 11/18/25 sertraline 100 mg tablet 100 mg PO DAILY 11/18/25 11/18/25 Allergies Allergy/AdvReac Type Severity Reaction Status Date / Time buspirone Allergy Mild Verified 11/18/25 11:17 Review of Systems Status of ROS: Reports: 10 or more systems reviewed and unremarkable except as noted in History and below [facility] Social History Smoking Status: Never smoker Do you use any of these nicotine containing products: None Second hand tobacco smoke exposure: No How often do you have a drink containing alcohol: never How often do you have six or more drinks on one occasion: Never AUDIT-C Alcohol total score: 0 Non-prescribed substance use: denies use service: No Exam Narrative: Exam Narrative: Vital signs reviewed In general, an alert, nontoxic young woman. Head: Normocephalic, atraumatic. Eyes: Sclera clear. Pupils equal and reactive. ENT: Mucous membranes moist. Neck: Supple without adenopathy. Heart: Regular rate and rhythm without murmur. Lungs: Clear. No increased work of breathing, crackles or wheezes. Abdomen: Soft, nontender to palpation. Extremities: Well perfused, pulses intact. No significant edema. Neurologic: Alert, conversant. Speech fluent, face symmetric. Moves all extremities equally. Skin: Warm, dry well perfused. Affect: Anxious. Const: Vital Signs, click to edit/add: Vital Signs - 24 hr 11/18/25 11:06 Temperature 98.5 F Pulse Rate [Pulse Oximeter] 92 Respiratory Rate 16 Blood Pressure [Ri ght Upper Arm] 126/77 Pulse Oximetry 99 Oxygen Delivery Me thod Room Air Course Course ED Course: Patient presents with palpitations, reported tachycardia. Vital signs are normal here. Exam is unrevealing. Diagnostic considerations would include an arrhythmia such as SVT, less likely ventricular tachycardia. She did not have any lightheadedness, chest pain. Did feel somewhat short of breath. This is in setting of underlying anxiety about her health, anxiety could certainly be contributing to her symptoms. Will check basic labs, EKG, plan for ZIO patch and primary care follow-up if these are unremarkable. Evaluation here is unremarkable. EKG by my review shows a sinus rhythm, ventricular rate of 69 beats per minute. Normal intervals, no acute ST segment changes, unremarkable T-waves. We did place a ZIO patch, discussed need for primary care follow-up thereafter. Certainly if she has recurrent episodes accompanied by severe symptoms such as fainting, significant chest pain, significant shortness of breath, return to the ER at any time. Diagnosis: Palpitations Vital Signs Vital signs: Initial Vital Signs Temperature 98.5 F 11/18/25 11:06 Temperature Source Temporal Artery Scan 11/18/25 11:06 Pulse Rate 92 11/18/25 11:06 Respiratory Rate 16 11/18/25 11:06 Blood Pressure 126/77 11/18/25 11:06 Blood Pressure Mean 93 11/18/25 11:06 Blood Pressure Position Sitting 11/18/25 11:06 Pulse Oximetry 99 11/18/25 11:06 Oxygen Delivery Method Room Air 11/18/25 11:06 Vital Signs Temperature 98.5 F 11/18/25 11:06 Pulse Rate 92 11/18/25 11:06 Respiratory Rate 16 11/18/25 11:06 Blood Pressure 126/77 11/18/25 11:06 Pulse Oximetry 99 11/18/25 11:06 Oxygen Delivery Method Room Air 11/18/25 11:06 Temperature 98.5 F 11/18/25 11:06 Pulse Rate 92 11/18/25 11:06 Respiratory Rate 16 11/18/25 11:06 Blood Pressure 126/77 11/18/25 11:06 Pulse Oximetry 99 11/18/25 11:06 Oxygen Delivery Method Room Air 11/18/25 11:06 Medical Decision Making Lab Data Labs: Lab Results 11/18/25 Range/Units 12:00 WBC 3.88 L (4.50-11.00) K/uL RBC 4.51 (4.00-5.20) m/uL Hgb 12.8 (12.0-16.0) gm/dL Hct 39.6 (33.0-51.0) % MCV 88 (80-100) fL MCH 28 (26-34) pg MCHC 32 (32-36) gm/dL RDW Coeff of Angela 13.5 (11.5-15.5) % Plt Count 332 (140-440) K/uL Neut % (Auto) 48.2 (42.0-72.0) % Lymph % (Auto) 43.3 (20-44) % [place] % (Auto) 5.9 (0.0-11.0) % Eos % (Auto) 1.8 (0.0-7.0) % Baso % (Auto) 0.8 (0.0-3.0) % Neut # (Auto) 1.90 (1.7-7.0) K/uL Lymph # (Auto) 1.70 (0.90-2.90) K/uL Ulster # (Auto) 0.20 (0.00-0.90) K/UL Eos # (Auto) 0.10 (0.00-0.50) K/uL Baso # (Auto) 0.00 (0.00-0.30) K/uL Abs Immat Gran (auto) 0.00 (0.00-0.30) K/uL Imm/Tot Granulo (auto) 0.0 % Sodium 138 (135-149) mmol/L Potassium 4.4 (3.6-5.1) mmol/L Chloride 102 (96-114) mmol/L Carbon Dioxide 27 (20-32) mmol/L Anion Gap 9 (7-15) mEq/L BUN 11 (5-24) mg/dL Creatinine 0.7 (0.5-1.5) mg/dL Estimated Creat Clear 108.01 Estimated GFR 118 ml/min Glucose 85 (60-115) mg/dL Calcium 9.6 (8.4-10.6) mg/dL Magnesium 2.0 (1.5-2.6) mg/dL Discharge Plan Discharge Clinical Impression: Palpitations Patient Disposition: Home, Self-Care Condition: Improved Instructions: Heart Palpitations (DC) Additional Instructions: Your evaluation today is encouraging, your labs are normal and her EKG is as well. As discussed, we will send you home with cardiac monitoring to see if you have any episodes of abnormal rhythm. Please make an appointment with your primary doctor for follow-up after completion of your heart monitoring. If you have recurrent episodes associated with fainting, significant chest pain or other worsening, return to the ER. Prescriptions: No Action gabapentin 100 mg capsule 100 mg PO DAILY lisdexamfetamine 50 mg capsule 50 mg PO DAILY sertraline 100 mg tablet 100 mg PO DAILY ferrous gluconate 324 mg (38 mg iron) tablet 324 mg PO Q1D Follow Up/Referrals: Provider,Not a Local [Non-Staff, Family Practice] Stand Alone Forms: [email or web address] Info Instructions
[2025-11-18 12:09] LABS: Hematocrit* 39.6 % (33.0-51.0); Hemoglobin* 12.8 gm/dL (12.0-16.0); Immature Granulocytes Abs Auto 0.00 K/uL (0.00-0.30); Immature Granulocytes Pct Auto 0.0 %; Mean Corpuscular HGB Conc 32 gm/dL (32-36); Mean Corpuscular Hemoglobin 28 pg (26-34); Mean Corpuscular Volume 88 fL (80-100); RDW Coefficient of Variation % 13.5 % (11.5-15.5); Red Blood Count* 4.51 m/uL (4.00-5.20); White Blood Count* 3.88 K/uL (4.50-11.00)
[2025-11-18 12:10] LABS: Lymphocytes Absolute Auto 1.70 K/uL (0.90-2.90); Slide Review Reflex No
[2025-11-18 12:24] LABS: Chloride* 102 mmol/L (96-114)
[2025-11-18 12:25] LABS: Potassium* 4.4 mmol/L (3.6-5.1); Sodium* 138 mmol/L (135-149)
[2025-11-18 12:27] LABS: Blood Urea Nitrogen* 11 mg/dL (5-24); Creatinine* 0.7 mg/dL (0.5-1.5); Est. Creatinine Clearance* 108.01; Estimated Glomerular Filt Rate 118 ml/min
[2025-11-18 12:28] LABS: Anion Gap 9 mEq/L (7-15); Calcium* 9.6 mg/dL (8.4-10.6); Carbon Dioxide* 27 mmol/L (20-32); Glucose* 85 mg/dL (60-115)
== END 2025-11-18 13:20 | disposition home or self-care (01) ==
PROVIDERS: Emergency Provider Emergency Medicine; PCP Physician Assistant
DX: R00.2 Palpitations (principal)
CPT/HCPCS: 36415; 80048; 83735; 85025; 93005; 93246; 99284